=== PATIENT | male | born 1985 | race African-American/Black ===

== ENCOUNTER → 2024-08-29 11:19 | Emergency (ER) | payer OTHER, SELFPAY ==
--- NOTE | ~2024-08-29 | XR_ITS ---
XR chest 2V Ordering provider: Arik Arvizu MD History: 39 years Male with . cp . Comparison: None. FINDINGS: MEDIASTINUM: The cardiac silhouette is not enlarged. LUNGS: No infiltrates, effusions or pneumothorax. OTHER: No free air under the diaphragm. IMPRESSION: No acute cardiopulmonary pathology. Reviewed, dictated and finalized at location A. ASSOCIATE
--- NOTE | 2024-08-29 11:21 | ECG_ITS ---
Test Date: 2024-08-29 11:26:58 Measurements Intervals [place] Rate: 63 P: 66 TX: 165 QRS: 2 QRSD: 96 T: 43 QT: 364 QTc: 374 Interpretive Statements SINUS RHYTHM POSSIBLE RIGHT VENTRICULAR CONDUCTION DELAY [RSR (QR) IN V1/V2] No previous ECG available for comparison Electronically Signed On 08-30-2024 15:23:45 [employer] SEATING [employer]ESS OPERATOR by Tin Fam M.D.
[2024-08-29 11:28] VITALS: BP 154/88; PULSE 70; RESP 16; TEMP 36.6; O2SAT 100
[2024-08-29 11:36] VITALS: BP 155/92; PULSE 68; RESP 21; TEMP 36.9; O2SAT 100
[2024-08-29] MEDS: ASPIRIN 81 MG CHEWABLE TABLET 324 MG PO (11:39)
[2024-08-29 11:41] VITALS: BP 144/87; PULSE 62; RESP 15; TEMP 36.9; O2SAT 100
[2024-08-29] MEDS: Please add drug allergy info to patient profile. 1 EACH XX (11:57)
[2024-08-29 12:09] LABS: Basophils Percent Auto 0.6 % (0.2-1.2); Eosinophils Percent Auto 0.8 % (0-4.4); Hematocrit 44.7 % (42.0-52.0); Hemoglobin 14.7 g/dL (14.0-18.0); Immature Granulocyte Absolute 0.01 K/mm3 (0.00-0.031); Immature Granulocyte Percent A 0.2 % (0-0.5); Lymphocytes Absolute Auto 2.41 K/mm3 (0.9-3.2); Lymphocytes Percent Auto 49.3 % (18.3-44.2); Mean Corpuscular HGB Conc 32.9 g/dl (32-36); Mean Corpuscular Hemoglobin 30.9 pg (26-34); Mean Corpuscular Volume 94.1 fl (80-100); Monocytes Absolute Auto 0.3 K/mm3 (0.1-0.6); Monocytes Percent Auto 5.7 % (2.6-8.5); Neutrophils Absolute Auto 2.1 K/mm3 (1.3-6.7); Neutrophils Percent Auto 43.4 % (45.5-73.1); Platelet Count Result 177 k/mm3 (150-375); Red Blood Count 4.75 M/mm3 (4.6-6.20); Red Cell Distribution Width 11.1 % (11.5-14.5); White Blood Count 4.9 K/mm3 (4.5-10.0)
[2024-08-29 12:20] LABS: Partial Thromboplastin Time 27.1 Seconds (22.3-36.8); Prothrombin Time 13.1 Seconds (11.1-14.7)
[2024-08-29 12:23] LABS: Alanine Aminotransferase 24 U/L (6-50); Albumin Level 4.5 g/dL (3.5-5.1); Alkaline Phosphatase 58 U/L (38-126); Anion Gap 2 mmol/L (4-12); Aspartate Amino Transferase 41 U/L (17-59); Bilirubin,Total 0.8 mg/dL (0.2-1.3); Blood Urea Nitrogen 13 mg/dL (9-20); Calcium 9.4 mg/dL (8.4-10.2); Carbon Dioxide 29 mmol/L (22-30); Chloride 105 mmol/L (98-107); Estimated CRCL calculation 90 ml/min; Estimated Glomerular Filt Rate > 60; Glucose 95 mg/dL (65-110); Lipase 90 U/L (23-300); Potassium 4.2 mmol/L (3.4-5.0); Sodium 136 mmol/L (137-145)
--- NOTE | 2024-08-29 12:28 | ED.CHESTPAIN ---
HPI - Chest Pain General Chief Complaint: Chest Pain Stated Complaint: chest pain Time Seen by Provider: 08/29/24 11:36 History of Present Illness HPI narrative: 39-year-old otherwise healthy male presenting for evaluation of intermittent chest discomfort. 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 His boss was concerned and sent into the ED for evaluation. Presently has no pain whatsoever and patient states that initially he had pain 5/10 which was alleviated with any intervention. No nausea, vomiting, shortness of breath, abdominal pain, back pain. No history of hypertension, atherosclerosis, nonsmoker. Was otherwise in his normal state of health. Related Data Allergies Allergy/AdvReac Type Severity Reaction Status Date / Time No Known Allergies Allergy Verified 08/29/24 11:36 Review of Systems Review of Systems: As reviewed above in HPI Exam Narrative: GENERAL: [Well-appearing, well-nourished, and in no acute distress.] HEAD: [Normocephalic, atraumatic.] EYES: [PERRLA and EOMI.] ENT: Nares clear, no rhinorrhea or epistaxis. Mucous membranes moist. NECK: Supple. CHEST: [Clear to auscultation. No respiratory distress.] HEART: [Regular rate and rhythm]. No murmur heard. [Normal peripheral pulses.] ABDOMEN: [Soft, nondistended], [nontender], [No rigidity or guarding] EXTREMITIES: Normal range of motion. [No edema.] SKIN: Warm, dry, no rash. NEURO: [No focal deficits]. Alert and oriented [x3.] PSYCH: [Normal mood and affect.] Course Vital Signs Vital signs: Vital Signs Temperature 36.6 C 08/29/24 11:28 Pulse Rate 70 08/29/24 11:28 Respiratory Rate 16 08/29/24 11:28 Blood Pressure 154/88 H 08/29/24 11:28 Pulse Oximetry 100 08/29/24 11:28 Oxygen Delivery Room Air 08/29/24 11:28 Temperature 36.8 C 08/29/24 13:08 Pulse Rate 68 08/29/24 13:08 Respiratory Rate 19 08/29/24 13:08 Blood Pressure 127/84 08/29/24 13:08 Pulse Oximetry 100 08/29/24 13:08 Oxygen Delivery Room Air 08/29/24 11:49 MDM - Chest Pain MDM Narrative Medical decision making narrative: 39-year-old otherwise healthy male presenting to the emergency room for intermittent chest pain. Chest pain started about 4:00 p.m. yesterday and intermittent and lasting several minutes. States it was worse with movement and noticed it while he was at his wearing a stocking things. Presently has no pain whatsoever, appears well not any acute distress. Mildly hypertensive with blood pressure 144/87 but no tachycardia, fever, hypoxia. Clear breath sounds, symmetric strong pulses with warm extremities. Suspicion for ACS is very low, musculoskeletal chest pain or costochondritis is high, less likely intrathoracic process such as pneumonia or pneumothorax. Will obtain with cardiac workup, EKG, chest x-ray. Patient is presently asymptomatic and not requiring any medications at this time. Patient is low risk with heart score of 1 and can safely be discharged upon negative workup. No leukocytosis, no anemia. Normal coags. Electrolytes within normal limits, normal renal function panel, normal creatinine. Normal LFTs, negative initial troponin. Negative lipase. I do not appreciate any kind of effusions pneumothorax or infiltrates on the chest x-ray confirmed by Radiology no acute cardiothoracic process. EKG nonischemic, there is a J-point elevation in V2 but no ST segment elevations or depressions elsewhere, no reciprocal changes, no previous EKG, normal sinus rhythm without signs of acute ischemic changes. Patient still asymptomatic here in the emergency without any recurrence of his previous chest pain while here in the department. Stable for discharge home at this time. Medical Records Data Attestation: I reviewed the patient's medical records. Lab Data Attestation: I reviewed the patient's lab results. 08/29/24 11:58 08/29/24 11:58 Labs: Lab Results 08/29/24 Range/Units 11:58 WBC 4.9 (4.5-10.0) K/mm3 RBC 4.75 (4.6-6.20) M/mm3 Hgb 14.7 (14.0-18.0) g/dL Hct 44.7 (42.0-52.0) % MCV 94.1 (80-100) fl MCH 30.9 (26-34) pg MCHC 32.9 (32-36) g/dl RDW 11.1 L (11.5-14.5) % Plt Count 177 (150-375) k/mm3 MPV 10.0 (7.4-10.4) fl Immature Gran % (Auto) 0.2 (0-0.5) % Neut % (Auto) 43.4 L (45.5-73.1) % Lymph % (Auto) 49.3 H (18.3-44.2) % [place] % (Auto) 5.7 (2.6-8.5) % Eos % (Auto) 0.8 (0-4.4) % Baso % (Auto) 0.6 (0.2-1.2) % Lymph # (Auto) 2.41 (0.9-3.2) K/mm3 [place] # (Auto) 0.3 (0.1-0.6) K/mm3 Eos # (Auto) 0.0 (0-0.3) K/mm3 Baso # (Auto) 0.0 (0.0-0.1) K/mm3 Abs Immat Gran (auto) 0.01 (0.00-0.031) K/mm3 Absolute Neuts (auto) 2.1 (1.3-6.7) K/mm3 Absolute Nucleated RBC 0.000 (0.0-0.012) K/mm3 Nucleated RBC % 0.0 (0.0-0.2) % PT 13.1 (11.1-14.7) Seconds INR 1.0 APTT 27.1 (22.3-36.8) Seconds Sodium 136 L (137-145) mmol/L Potassium 4.2 (3.4-5.0) mmol/L Chloride 105 (98-107) mmol/L Carbon Dioxide 29 (22-30) mmol/L Anion Gap 2 L (4-12) mmol/L BUN 13 (9-20) mg/dL Creatinine 1.20 (0.7-1.3) mg/dL Estim Creat Clear Calc 90 ml/min Estimated GFR > 60 (59 - ) Glucose 95 (65-110) mg/dL Calcium 9.4 (8.4-10.2) mg/dL Total Bilirubin 0.8 (0.2-1.3) mg/dL AST 41 (17-59) U/L ALT 24 (6-50) U/L Alkaline Phosphatase 58 (38-126) U/L Troponin I 0.029 (0.000-0.034) ng/mL Total Protein 8.0 (6.3-8.2) g/dL Albumin 4.5 (3.5-5.1) g/dL Lipase 90 (23-300) U/L Imaging Data Attestation: I personally reviewed and interpreted this imaging study as follows: My impression: Impressions Chest X-Ray 08/29/24 12:10 IMPRESSION: No acute cardiopulmonary pathology. Discharge Plan Discharge Clinical Impression: Pain, chest wall, Costalchondritis, Atypical chest pain Patient Disposition: Home, Self-Care Condition: Stable Instructions: Antibiotic Form, Chest Pain (ED), Chest Wall Pain (ED) Additional Instructions: Follow-up with your regular primary care provider, return with any new or worsening concerns at any time. Patient Language: Palestinian Follow-up/Referrals: PHYSICIAN NOT ON STAFF,NONSTAFF [Non-Staff] - Time of Disposition: 13:21 Quality HEART score for chest pain patients History: slightly suspicious ECG: normal Age: < or = to 45 years Risk factors: 1 or 2 risk factors Troponin: < or = to 1x normal limit Heart score: 1
[2024-08-29 12:34] LABS: Troponin I 0.029 ng/mL (0.000-0.034)
[2024-08-29 13:08] VITALS: BP 127/84; PULSE 68; RESP 19; TEMP 36.8; O2SAT 100
== END | disposition home or self-care (01) ==
LOC: ANHED 13:30
PROVIDERS: Emergency Provider Student in an Organized Health Care Education/Training Program
DX: M94.0 Chondrocostal junction syndrome [Tietze] (principal); R07.89 Other chest pain; R94.31 Abnormal electrocardiogram [ECG] [EKG]
CPT/HCPCS: 36415; 71046; 80053; 83690; 84484; 85025; 85610; 85730; 93005; 99284; A9270